=== PATIENT | female | born 1980 | race African-American/Black ===

== ENCOUNTER 2020-06-09 11:44 | Emergency (ER) | payer OTHER ==
[2020-06-09 12:17] LABS: ABSOLUTE EOSINOPHILS # (AUTO) 0.2 10^3/uL (0.0-0.6); ABSOLUTE LYMPHOCYTES (AUTO) 2.5 10^3/uL (0.5-4.7); ABSOLUTE MONOCYTES (AUTO) 0.5 10^3/uL (0.1-1.4); ABSOLUTE NEUT (AUTO) 2.6 10^3/uL (1.7-8.2); BASOPHILS % (AUTO) 0.6 % (0-2); EOSINOPHILS % (AUTO) 2.9 % (0-6); HEMOGLOBIN 11.3 g/dL (12.0-15.5); LYMPHOCYTES % (AUTO) 43.6 % (13-45); MEAN CORPUSCULAR HEMOGLOBIN 21.2 pg (27.0-33.4); MEAN CORPUSCULAR HGB CONC 31.5 g/dL (32.0-36.0); MEAN CORPUSCULAR VOLUME 67 fl (80-97); PLATELET COUNT 178 10^3/uL (150-450); RED BLOOD COUNT 5.36 10^6/uL (3.72-5.28); RED CELL DISTRIBUTION WIDTH 16.1 % (11.5-14.0); SEGMENTED NEUTROPHILS % (AUTO) 44.9 % (42-78); TOTAL CELLS COUNTED % (AUTO) 100 %; WHITE BLOOD COUNT 5.7 10^3/uL (4.0-10.5)
--- NOTE | 2020-06-09 12:24 | ER Document Report ---
ED Cardiac - General Chief Complaint: Palpitations Stated Complaint: PALPITATIONS Time Seen by Provider: 06/09/20 12:04 Primary Care Provider: CARSON ANGUIANO MD [ACTIVE STAFF] - Follow up as needed DANO COYLE MD [ACTIVE STAFF] - Follow up as needed JEAN PIERRE GILMAN MD [ACTIVE STAFF] - Follow up as needed GUNNER LEON MD [Primary Care Provider] - Follow up in 3-5 days BRENDA JACKSON MD [EMERITUS] - Follow up as needed Notes: Patient is a 39-year-old female who presents the emergency department with a [facility] complaint of palpitations. Patient states that she cannot really describe how she feels, but she feels like her heart is skipping over. Patient denies any control use, recent travel, leg pain, smoking, or any other risk factors. Patient denies any past medical history. She does not take any medications. - Related Data Allergies/Adverse Reactions: No Known Allergies Allergy (Verified 06/09/20 12:57) Past Medical History - General Information source: Patient - Social History Smoking Status: Never Smoker Family History: Reviewed & Not Pertinent Review of Systems - Review of Systems Notes: REVIEW OF SYSTEMS: CONSTITUTIONAL : Denies recent illness. Denies recent unintentional weight loss. Denies fever, chills, or sweats. EENT: Denies eye, ear, throat, or mouth pain, discharge, or symptoms. Denies nasal or sinus congestion. CARDIOVASCULAR: See HPI. RESPIRATORY: Denies shortness of breath, cough, congestion, difficulty breath ing, or wheezing. GASTROINTESTINAL: Denies nausea, vomiting, and diarrhea. Denies abdominal pain. Denies constipation. GENITOURINARY: Denies difficulty urinating, burning, blood in urine, urgency or frequency. MUSCULOSKELETAL: Denies neck and back pain. Denies joint pain or swelling. SKIN: Denies rash, itchiness, or lesions HEMATOLOGIC : Denies easy bruising or bleeding. LYMPHATIC: Denies swollen, painful, enlarged glands. NEUROLOGICAL: Denies no numbness or tingling denies weakness. Denies headache. Denies altered mental status. Denies alteration in speech. PSYCHIATRIC: Denies stress, anxiety, alteration in sleep patterns, or depression. All other systems reviewed and negative. Physical Exam - Vital signs Vitals: Temp Pulse Resp BP Pulse Ox 98.8 F 102 H 20 136/80 H 98 06/09/20 11:58 06/09/20 11:58 06/09/20 11:58 06/09/20 11:58 06/09/20 11:58 - Notes Notes: PHYSICAL EXAMINATION: GENERAL: Appears well, healthy, well-nourished, no acute distress. HEAD: Normocephalic, atraumatic. EYES: PERRL, conjunctiva normal, all extraocular movements intact, sclera nonicteric ENT: Moist mucous membranes. NECK: Supple, no noticeable swelling, redness, rash. Normal range of motion. LUNGS: Equal breath sounds bilaterally and clear to auscultation. No wheezes rales or rhonchi. CARDIOVASCULAR: S1-S2, tachycardic, PVCs noted. Radial pulses 2+, normal. ABDOMEN: Normoactive bowel sounds. Soft, nontender, no guarding, no rebound tenderness, and no masses palpated. EXTREMITIES: Normal strength and range of motion, no pitting or edema. No cyanosis. NEUROLOGICAL: Moves all extremities upon command. Strength 5/5 in all extremiti es. PSYCH: Normal mood, normal affect. SKIN: Warm, dry. No rash, lesions, ulcerations noted. Normal skin turgor. Course - Re-evaluation Re-evalutation: 06/09/20 13:00 Hematology shows no evidence of a leukocytosis, but her hemoglobin is 11.3. I have no other labs to compare this to. Patient denies any bleeding. D-dimer is negative, ruling out pulmonary emboli. Chemistries are unremarkable. CK is normal. Liver function tests are also normal. Thyroid studies unremarkable. Initial troponin negative. Will repeat another troponin. 06/09/20 16:52 Patient second troponin is negative. Patient has not had any PVCs since I saw her earlier in the day. Patient states that she does not feel the palpitations anymore. Advised the patient to follow-up with her primary care provider and cardiology on an outpatient basis. Recommended the patient be placed on a 24- hour Holter monitor. She is in agreement with this plan. Follow-up precautions were given. Verbal discharge instructions were given to the patient. They verbalized understanding. They are stable for discharge. - Vital Signs Vital signs: Temp Pulse Resp BP Pulse Ox 98.8 F 102 H 17 103/72 100 06/09/20 11:58 06/09/20 11:58 06/09/20 12:31 06/09/20 12:31 06/09/20 13:04 - Laboratory Result Diagrams: 06/09/20 11:55 06/09/20 11:55 Laboratory results interpreted by me: 06/09/20 06/09/20 06/09/20 11:55 11:55 13:05 RBC 5.36 H Hgb 11.3 L MCV 67 L MCH 21.2 L MCHC 31.5 L RDW 16.1 H Glucose 117 H Urine Protein 30 H Leukocyte Esterase Rfl SMALL H Urine Ascorbic Acid 40 H - EKG Interpretation by Me Additional EKG results interpreted by me: 06/09/20 17:00 Sinus tachycardia with PVCs. Rate 113. OR 140; QRS 88; QT 328; QTc 450. No ST elevations or depressions noted. Discharge - Discharge Clinical Impression: Palpitations Condition: Stable Disposition: HOME, SELF-CARE Instructions: Palpitations (Irregular or Rapid Heartrate) ([facility]) Additional Instructions: You were seen today in the emergency department for palpitations. Your work-up is reassuring. Your labs and x-ray are normal. Please follow-up with your primary care provider. I recommend that you follow-up with cardiology to have a 24-hour Holter monitor placed to monitor your heart rate and rhythm. 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 If you develop her symptoms again, or have any symptoms that are worrisome to you, please return to the emergency department. Referrals: GUNNER LEON MD [Primary Care Provider] - Follow up in 3-5 days DANO COYLE MD [ACTIVE STAFF] - Follow up as needed JEAN PIERRE GILMAN MD [ACTIVE STAFF] - Follow up as needed CARSON ANGUIANO MD [ACTIVE STAFF] - Follow up as needed BRENDA JCAKSON MD [EMERITUS] - Follow up as needed
[2020-06-09 12:36] LABS: ALBUMIN 4.9 g/dL (3.5-5.0); ALKALINE PHOSPHATASE 50 U/L (38-126); ANION GAP 9 (5-19); ASPARTATE AMINO TRANSFERASE 24 U/L (14-36); BILIRUBIN,TOTAL 0.9 mg/dL (0.2-1.3); BLOOD UREA NITROGEN 12 mg/dL (7-20); CALCIUM 9.9 mg/dL (8.4-10.2); CARBON DIOXIDE 28 mmol/L (22-30); CHLORIDE 101 mmol/L (98-107); CREATINE KINASE 85 U/L (30-135); GLUCOSE 117 mg/dL (75-110); POTASSIUM 3.8 mmol/L (3.6-5.0); TOTAL PROTEIN 8.2 g/dL (6.3-8.2)
[2020-06-09 12:46] LABS: CREATINE KINASE MB 0.35 ng/mL (<4.55)
[2020-06-09 12:52] LABS: FREE T3 3.17 pg/mL (2.77-5.27); FREE T4 (FREE THYROXINE) 0.83 ng/dL (0.78-2.19); TROPONIN I < 0.012 ng/mL
[2020-06-09 13:06] LABS: THYROID STIMULATING HORMONE 2.37 uIU/mL (0.47-4.68)
[2020-06-09 13:22] LABS: APPEARANCE,URINE SLIGHTLY-CLOUDY; BILIRUBIN,URINE NEGATIVE (NEGATIVE); COLOR,URINE YELLOW; GLUCOSE, URINE NEGATIVE (NEGATIVE); KETONES,URINE NEGATIVE (NEGATIVE); PROTEIN,URINE 30 mg/dL (NEGATIVE); URINE SPECIFIC GRAVITY 1.023; UROBILINOGEN,URINE NEGATIVE mg/dL (<2.0)
[2020-06-09 13:31] LABS: URINE AMPHETAMINES SCREEN NEGATIVE; URINE BARBITURATES SCREEN NEGATIVE; URINE BENZODIAZEPINES SCREEN NEGATIVE; URINE COCAINE SCREEN NEGATIVE; URINE MARIJUANA (THC) SCREEN NEGATIVE; URINE METHADONE SCREEN NEGATIVE; URINE PHENCYCLIDINE SCREEN NEGATIVE
--- NOTE | 2020-06-09 13:34 | RADIOLOGY REPORT (SQ) ---
EXAM DESCRIPTION: CHEST 2 VIEWS IMAGES COMPLETED DATE/TIME: 06/09/2020 1:17 pm REASON FOR STUDY: palpitations COMPARISON: None. EXAM PARAMETERS: NUMBER OF VIEWS: two views TECHNIQUE: Digital Frontal and Lateral radiographic views of the chest acquired. RADIATION DOSE: NA LIMITATIONS: none FINDINGS: LUNGS AND PLEURA: No consolidation, pneumothorax or pleural effusion. MEDIASTINUM AND HILAR STRUCTURES: No masses or contour abnormalities. HEART AND VASCULAR STRUCTURES: Heart normal size. No evidence for failure. BONES: No acute findings. HARDWARE: None in the chest. IMPRESSION: NO ACUTE RADIOGRAPHIC FINDING IN THE CHEST. TECHNICAL DOCUMENTATION: JOB ID: [id number] [employer]- All Rights Reserved Reading location - IP/workstation name: [email or web address]
[2020-06-09 17:33] VITALS: BP 115/75
--- NOTE | 2020-06-10 07:59 | EKG REPORT ---
SEVERITY:- ABNORMAL ECG - SINUS TACHYCARDIA VENTRICULAR TRIGEMINY : Confirmed by: Sabino Linares 10-Jun-2020 07:58:28
== END 2020-06-09 17:00 | disposition home or self-care (01) ==
LOC: ER 11:44
DX: R00.2 Palpitations (principal)
CPT/HCPCS: 36415; 71046; 80053; 80307; 81001; 82550; 82553; 84439; 84443; 84481; 84484; 85025; 85379; 87086; 93005; 93010; 99285